=== PATIENT | male | born 1960 ===

== ENCOUNTER 2016-11-22 14:50 | Emergency (ER) | payer SELFPAY ==
[2016-11-22 16:52] LABS: BASO % 0.6 % (0.0-2.0); EOS % 0.2 % (0.0-4.0); HEMOGLOBIN 13.8 g/dL (12.0-18.0); LYMPH # 1.3 K/uL (1.0-4.3); LYMPH % 15.2 % (20.0-40.0); MEAN CELL VOLUME 80.1 fL (80.0-94.0); MEAN CORPUSCULAR HEMOGLOBIN 26.5 pg (27.0-31.0); MEAN PLATELET VOLUME 9.2 fL (7.2-11.7); MONO # 0.4 K/uL (0.0-0.8); MONO % 4.5 % (0.0-10.0); NEUT # 6.8 K/uL (1.8-7.0); NEUT % 79.5 % (50.0-75.0); RBC 5.21 Mil/uL (4.40-5.90); RED CELL DISTRIBUTION WIDTH 15.6 % (11.5-14.5); WHITE BLOOD COUNT 8.5 K/uL (4.8-10.8)
[2016-11-22 16:55] LABS: SQUAMOUS EPITHIAL < 1 /hpf (0-5); URINE BILIRUBIN NEGATIVE (NEGATIVE); URINE BLOOD NEGATIVE (NEGATIVE); URINE CLARITY Clear (Clear); URINE COLOR Straw (YELLOW); URINE GLUCOSE (UA) NORMAL (Normal); URINE LEUKOCYTE ESTERASE NEG Leu/uL (Negative); URINE NITRATE NEGATIVE (NEGATIVE); URINE PROTEIN NEGATIVE (NEGATIVE); URINE UROBILINOGEN NORMAL mg/dL (0.2-1.0)
--- NOTE | 2016-11-22 17:00 | CT ---
PROCEDURE: CT HEAD WITHOUT CONTRAST. HISTORY: dizzy COMPARISON: None available. TECHNIQUE: Axial computed tomography images were obtained through the head/brain without intravenous contrast. Radiation dose: Total exam DLP = 878 mGy-cm. This CT exam was performed using one or more of the following dose reduction techniques: Automated exposure control, adjustment of the mA and/or kV according to patient size, and/or use of iterative reconstruction technique. FINDINGS: HEMORRHAGE: No intracranial hemorrhage. BRAIN: No mass effect or edema. No atrophy or chronic microvascular ischemic changes. VENTRICLES: Unremarkable. No hydrocephalus. CALVARIUM: Unremarkable. PARANASAL SINUSES: Mucosal thickening of the ethmoid air cells. MASTOID AIR CELLS: Unremarkable as visualized. No inflammatory changes. OTHER FINDINGS: None. IMPRESSION: No acute intracranial abnormality. Sinus mucosal disease. If focal neurologic deficit persists, consider MRI.
[2016-11-22 17:03] LABS: INR 1.1; PROTHROMBIN TIME 12.2 SECONDS (9.7-12.2)
[2016-11-22 17:05] LABS: ALBUMIN 4.1 g/dL (3.5-5.0)
--- NOTE | 2016-11-22 17:07 | RAD ---
PROCEDURE: CHEST RADIOGRAPH, 1 VIEW HISTORY: dizzy COMPARISON: None available. FINDINGS: LUNGS: Diffuse patchy increased interstitial lung markings suggestive for moderate venous congestion and/or interstitial infiltrates. Additional patchy bibasilar increased markings. Right hilar prominence. PLEURA: As above. CARDIOVASCULAR: Normal. OSSEOUS STRUCTURES: No significant abnormalities. VISUALIZED UPPER ABDOMEN: Normal. OTHER FINDINGS: None. IMPRESSION: Diffuse patchy increased interstitial lung markings suggestive for moderate venous congestion and/or interstitial infiltrates. Additional patchy bibasilar increased markings. Right hilar prominence.
[2016-11-22 17:08] LABS: AST/SGOT 23 U/L (17-59); BLOOD UREA NITROGEN 16 mg/dL (9-20); GFR AFRICAN-AMERICAN > 60; GFR NON-AFRICAN AMERICAN > 60
[2016-11-22 17:09] LABS: ALT/SGPT 35 U/L (21-72); CALCIUM 8.9 mg/dl (8.6-10.4)
--- NOTE | 2016-11-22 17:27 | C.PDOC ---
History Of Present Illness Amrik Menchaca, a 55 year old male, with a past medical history of hypertension presents to the ED complaining of weakness. The patient states that he is visiting from the [place] and it has been 4 months since he has seen a doctor. He states that he is currently taking an unknown blood pressure medication from the [place]. The patient reports that this morning he woke up feeling a bit weak> He goes on to say that he went to [employer] systems [employer] the kitchen where his relatives were frying chicken when he began to feel lightheaded like he was near syncope. He states that he is still a little bit dizzy but better than before. Denies nausea, vomiting, chest pain, shortness of breath. Chief Complaint (Nursing): Weakness/Neurological Deficit History Per: Patient History/Exam Limitations: no limitations Current Symptoms Are (Timing): Still Present Associated Symptoms Preceding Syncopal Episode: Lightheadedness Past Medical History Reviewed: Historical Data, Nursing Documentation, Vital Signs Vital Signs: Last Vital Signs Temp 98.2 F 11/22/16 17:56 Pulse 77 11/22/16 17:56 Resp 18 11/22/16 17:56 BP 128/82 11/22/16 17:56 Pulse Ox 98 11/22/16 17:56 - Medical History PMH: HTN Family History: States: Unknown Family Hx - Social History Hx Alcohol Use: Yes Hx Substance Use: No Review Of Systems Except As Marked, All Systems Reviewed And Found Negative. Cardiovascular: Negative for: Chest Pain Respiratory: Negative for: Shortness of Breath Gastrointestinal: Negative for: Nausea, Vomiting Neurological: Positive for: Weakness, Dizziness Physical Exam - Physical Exam Appears: Well, Non-toxic, No Acute Distress Skin: Normal Color, Warm, Dry Head: Atraumatic, Normacephalic, No Tenderness Eye(s): bilateral: Normal Inspection, PERRL, EOMI Nose: Normal Oral Mucosa: Moist Tongue: Normal Appearing Lips: Normal Appearing Teeth: Normal Dentition Throat: Normal Neck: Normal, Normal ROM, No Supple Cardiovascular: Rhythm Regular Respiratory: Normal Breath Sounds, No Wheezing Gastrointestinal/Abdominal: Normal Exam, Bowel Sounds, Soft, No Tenderness, No Guarding, No Rebound Back: Normal Inspection Extremity: Normal ROM, No Tenderness, No Pedal Edema, No Deformity, No Swelling Neurological/Psych: Oriented x3, Normal Speech, Normal Cognition, Normal Cranial Nerves ED Course And Treatment - Laboratory Results Result Diagrams: 11/22/16 16:46 11/22/16 16:46 ECG: Interpreted By Me Interpretation Of ECG: LVH Rate From EC O2 Sat by Pulse Oximetry: 96 (RA) Pulse Ox Interpretation: Normal - Radiology CXR: Interpreted by Me CXR Interpretation: Yes: No Acute Disease - CT Scan/US Head CT Other Rad Studies (CT/US): Read By Radiologist, Radiology Report Reviewed CT/US Interpretation: Accession No. : [id number]. Patient Name / ID : JOSE MATHUR / [id number]. Exam Date : 11/22/2016 16:23:52 ( Approved ). Study Comment : Sex / Age : M / 55Y. Creator : Elliott Boyle MD. Dictator : Elliott Boyle MD. Epilepsy Physician : Supervisor Curing Room : Elliott Boyle MD. Approver2 : Report Date : 11/22/2016 16:58:15. My Comment : . PROCEDURE: CT HEAD WITHOUT CONTRAST. HISTORY: dizzy. COMPARISON: None available. TECHNIQUE: Axial computed tomography images were obtained through the head/brain without intravenous contrast. Radiation dose: Total exam DLP = 878 mGy-cm. This CT exam was performed using one or more of the following dose reduction techniques : Automated exposure control, adjustment of the mA and/or kV according to patient size, and/or use of iterative reconstruction technique. FINDINGS: HEMORRHAGE: No intracranial hemorrhage. BRAIN: No mass effect or edema. No atrophy or chronic microvascular ischemic changes. VENTRICLES: Unremarkable. No hydrocephalus. CALVARIUM: Unremarkable. PARANASAL SINUSES: Mucosal thickening of the ethmoid air cells. MASTOID AIR CELLS: Unremarkable as visualized. No inflammatory changes. OTHER FINDINGS: None. IMPRESSION: No acute intracranial abnormality. Sinus mucosal disease. If focal neurologic deficit persists, consider MRI. Progress Note: Case was d/w hospitalist cushion padder who accepted patient to [facility] for observation. - Physician Consult Information Physician Contacted: Bay Sharma Outcome Of Conversation: accepted for observation to tele Medical Decision Making Medical Decision Making: Initial Impression: 55 year old male presenting with dizziness and weakness Initial Plan: * EKG * CT Head w/o Contrast * CK-MB * Comp Metabolic Panel * Creatinine Phosphokinase * Troponin * CBC * Partial Thromboplastin * Prothrombin time * CXR * Urinalysis * Reevaluation Disposition - Disposition Disposition: HOSPITALIZED Disposition Time: 19:34 Condition: FAIR Forms: [facility] (Kyrgyz) - Clinical Impression Clinical Impression: Near syncope - Scribe Statement The provider has reviewed the documentation as recorded by the Scribe Liya Gibson All medical record entries made by the Scribe were at my direction and personally dictated by me. I have reviewed the chart and agree that the record accurately reflects my personal performance of the history, physical exam, medical decision making, and the department course for this patient. I have also personally directed, reviewed, and agree with the discharge instructions and disposition. Decision To Admit - Pt Status Changed To: Hospital Disposition Of: Observation - . Bed Request Type: Telemetry Admitting Physician: Bay Sharma Patient Diagnosis: Near syncope
[2016-11-22 17:56] VITALS: BP 128/82; PULSE 77; RESP 18; TEMP 98.2
[2016-11-22 19:34] VITALS: O2SAT 96
== END 2016-11-22 19:55 | disposition left against medical advice (07) ==
LOC: C.ER 14:50
DX: R55 Syncope and collapse (principal); I10 Essential (primary) hypertension